=== PATIENT | female | born 1940 | race African-American/Black ===

== ENCOUNTER → 2021-12-11 | Day surgery (SDC) | payer MEDICARE, MEDICAID, SELFPAY ==
[2021-12-10 07:26] VITALS: BMI 29.5
[2021-12-11 09:23] LABS: Hemoglobin 12.4 g/dL (12.0-15.0); Mean Corp Hgb Conc 33.5 g/dL (32-36); Mean Corpuscular Hgb 27.4 pg (27.0-32.0); Mean Corpuscular Volume 81.7 fL (81-99); Mean Platelet Vol. 11.1 fl (6.2-12.0); Platelet Count 168 K/mm3 (150-450); RBC Distribution Width CV 15.3 % (11.6-14.6); RBC Distribution Width SD 44.9 fl (35.1-43.9); Red Blood Count 4.53 M/mm3 (4.2-5.4); White Blood Count 6.8 K/mm3 (4.4-11.0)
[2021-12-11 09:42] LABS: Anion Gap 11 (5-15); BUN 54 mg/dL (7-18); BUN/Creat Ratio 6.2 RATIO (10-20); Calcium,Total 8.9 mg/dL (8.5-10.1); Chloride 103 mmol/L (98-107); Creatinine, Serum 8.71 mg/dL (0.55-1.02); EST Glomerular Filtration Rate 5 mL/min (>60); Est Glom Filt Rate - Afr Amer 6 mL/min (>60); Estimated Creatinine Clearance 4.84 ml/min; Glucose 109 mg/dL (74-106); Sodium Level 139 mmol/L (136-145)
--- NOTE | 2021-12-11 10:20 | HP.PCM_ITS ---
History and Physical Allergies latex Allergy (Intermediate, Verified 12/05/21 15:45) Rashstatin meds Adverse Reaction (Severe, Uncoded 12/05/21 15:45) disoriented Medications B-complex with vitamin C 1 tab PO DAILY 12/04/21 [History Confirmed 12/10/21] apixaban 2.5 mg tablet 2.5 mg PO BID 12/04/21 [History Confirmed 12/10/21] aspirin 81 mg tablet,delayed release (Adult Low Dose Aspirin) 81 mg PO DAILY 12/04/21 [History Confirmed 12/10/21] calcium acetate(phosphat bind) 667 mg capsule 667 mg PO TIDWMEAL 12/04/21 [Hist ory Confirmed 12/10/21] cholecalciferol (vitamin D3) 25 mcg (1,000 unit) capsule 5,000 unit PO DAILY 12/04/21 [History Confirmed 12/10/21] cinacalcet 30 mg tablet 30 mg PO .COMPLEX 12/04/21 [History Confirmed 12/10/21] clonazepam 0.5 mg tablet (Klonopin) 1 mg PO DAILY 12/04/21 [History Confirmed 12/10/21] glimepiride 1 mg tablet 1 mg PO DAILY 12/04/21 [History Confirmed 12/10/21] hydralazine 50 mg tablet 50 mg PO BID 12/04/21 [History Confirmed 12/10/21] pantoprazole 40 mg tablet,delayed release 40 mg PO DAILY 12/04/21 [History Confirmed 12/10/21] polyethylene glycol 3350 17 gram oral powder packet 17 g PO DAILY 12/04/21 [History Confirmed 12/10/21] carvedilol 6.25 mg tablet 6.25 mg PO TID 12/05/21 [History Confirmed 12/10/21] linagliptin 5 mg tablet (Tradjenta) 5 mg PO DAILY 12/05/21 [History Confirmed 12/10/21] PFSH Medical History?(Updated 12/10/21 @ 09:[address] Kj Martínez MD) Diabetes ESRD (end stage renal disease) on dialysis Hypertension Surgical History?(Updated 12/10/21 @ 09:[address] Kj Martínez MD) S/P arteriovenous (AV) fistula creation HPI HPI HPI: STEPHANIE KING, is a 81 F who presents to the office today for difficulty with left arm AV fistula. Had been working for a few months, now with difficulty cannulating. Also has had prolonged bleeding after access and some episodes of clot in lines.? Has not had any imaging. ROS General General: Yes weight change; No appetite, fatigue, colon cancer, breast cancer or weakness HEENT HEENT: No difficulty swallowing, eye injury, eye surgery, swollen glands or hoarseness Endo Endocrine: Yes diabetes mellitus; No thyroid disease, thyroid cancer, Hair loss, heat intolerance or cold intolerance Skin Skin: No rash or changing moles Musc Musculoskeletal: Yes back problems; No arthritis, rheumatoid arthritis, gout or joint pain Cardio Cardiovascular: Yes high blood pressure and shortness of breat with exertion; No murmur, pacemaker, heart disease, atrial fibrillation, heart attack, heart stent, palpitations or chest pain Psych Psychiatric: Yes depression and anxiety; No hearing voices Resp Respiratory: Yes shortness of breath, Yes sleep apnea, No cough, No COPD, No asthma, No emphysema and No wheezing Gastro Gastrointestinal: No abdominal pain, No nausea or vomiting, No diarrhea, No constipation, No blood in stool, Yes acid reflux, No hemorrhoids, No ulcers, No gallbladder problem and No black,tarry stools Saman Hematologic: Yes blood thinners, No blood disorders, No bleeding, Yes anemia and No blood clots Neuro Neurologic: No system reviewed and no additional complaints, except as documented, No as per HPI, No abnormal gait, No abnormal hearing, No abnormal movements, No abnormal speech, No behavioral changes, No burning sensations, No confusion, No convulsions, No disequilibrium, No dizziness, No localized weakness, No frequent falls, No headache(s), No lack of coordination, No loss of vision, No memory loss, Yes numbness, No other visual disturbances, No radicular pain, No restless legs, No sensory deficit, No syncope, No tingling, No tremor(s), No weakness and No other Exam Const General: cooperative, healthy appearing, comfortable, no acute distress and well developed Nutritional Appearance: well nourished Orientation: alert, awake and oriented x3 HENMT Head: normocephalic and atraumatic Ears: hearing grossly normal bilaterally Nose: external nose normal Eyes General: appearance normal, both eyes and all related structures EOM: EOM intact bilaterally Neck Neck: trachea midline Resp Effort & Inspection: normal respiratory effort, able to speak in complete sentences, symmetric chest movement, no audible wheezes, not labored, no stridor and no use of accessory muscles Cardio Rate: regular rate Rhythm: regular rhythm Pulses: radial pulses present Other: +weak thrill in LUE fistula Neuro Cranial Nerves: CN's II-XI intact bilaterally and EOM intact bilaterally Speech: speech normal Motor: strength 5/5 throughout Sensory Exam: no sensory deficits noted Psych Appearance: grossly normal and well kempt Mental Status: mental status grossly normal Mood: congruent mood Speech and Movement: speech and movement normal Thought Content: normal Judgment: judgment good Coding Level of Care Code Off vis,est,level 3 Diagnoses 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
--- NOTE | 2021-12-11 11:08 | PCM.OPRPT ---
Report of Operation Date of Procedure: 12/11/21 Pre-Operative Diagnosis: malfunction of AV fistula Post-Operative Diagnosis: Same; stent within access segment Surgery/Procedure Performed:: fistulagram Description of Surgical Findings:: Patent fistula, brisk contrast transit, arterial inflow and venous outflow without stenosis. Stent in mid segment of access segment, <30% stenosis distal to stent Surgeon: Kj Martínez Type of Anesthesia: Local and Sedation,Conscious Estimated Blood Loss (mL): 10 Description of Procedure: HPI: Patient is an 81-year-old female with previously created left basilic fistula that has had prior angioplasty and stenting in the past. Has been working well for several months and then recently she has experienced multiple issues including difficulty accessing, bleeding after decannulation, and clot formation within the circuit. She taken now for fistulogram. Description of procedure: Upon obtaining informed consent and verification correct patient procedure site patient was taken to [facility] where she was positioned prepped and draped in usual sterile fashion. Timeout was then performed and conscious sedation was administered with intermittent doses of Versed and fentanyl. Ultrasound used to assess the fistula, and on grayscale imaging appeared to be satisfactory caliber throughout with visible stent in the midportion of the access segment. Skin was anesthetized 1% lidocaine adjacent to the anterior anastomosis, and fistula was accessed with micropuncture needle and wire. This was then exchanged for the 6 [place] access sheath, though there was some resistance advancing the sheath. This was then advanced under fluoroscopic guidance and noted to be catching on the end struts of the stent, was felt to be within the lumen of the fistula. The inner cannula was withdrawn and the access wire kept in position and small volume contrast injected under low pressure by hand which confirmed at the end of the sheath was not within the lumen. The inner dilator was then readvanced and the sheath advanced again under fluoroscopic guidance at this time easily into the lumen of the fistula and stent. From this position hand-injection fistulogram was performed segmentally of the entirety of the length of the venous outflow including superior vena cava, followed by compression of the mid fistula and reflux angiography into the arteriotomy was performed. The distal basilic vein as well as his outflow into the brachial, axillary, subclavian, innominate, and superior vena cava were all widely patent with no stenosis and brisk contrast transit. Contrast rapidly emptied into the right atrium. The proximal portion of the fistula and artery anastomosis were widely patent with no stenosis visualized. The stent within the access segment was patent with minimal luminal irregularity likely representing in-stent intimal hyperplasia that did not cause any significant stenosis. Likewise just distal to the stent there was mild luminal irregularity with no significant stenosis. Seeing no lesions that were appropriate for intervention a 4-0 nylon U stitch was placed in the skin, the sheath was withdrawn, and manual pressure held for 5 minutes. The inclusion the patient was taken recovery anticipated discharge home. Complications None
== END | disposition home or self-care (01) ==
PROVIDERS: PCP Family Medicine; Referring Provider Surgery Trauma Surgery; Visit Provider Surgery Trauma Surgery
DX: T82.41XA Breakdown (mechanical) of vascular dialysis catheter, initial encounter (principal); E11.22 Type 2 diabetes mellitus with diabetic chronic kidney disease; N18.6 End stage renal disease; I12.0 Hypertensive chronic kidney disease with stage 5 chronic kidney disease or end stage renal disease
CPT/HCPCS: 36415; 36901; 76937; 80048; 85027; 99152; 99153; Q9967

== ENCOUNTER 2021-12-30 06:38 | Day surgery (SDC) | payer MEDICARE, MEDICAID, SELFPAY ==
[2021-12-30] VITALS (7 sets, daily range): BP systolic 105–129; BP diastolic 40–71; PULSE 53–73; RESP 16–20; TEMP 36.4–37.3; O2SAT 94–99; BMI 30.8
--- NOTE | 2021-12-30 07:52 | HP.PCM_ITS ---
History and Physical [facility] Medical History? Anemia in CKD (chronic kidney disease) Anxiety Arthritis Asthma Back pain Cardiology follow-up encounter Cyst of kidney, acquired Dementia Diabetes Diabetes mellitus with chronic kidney disease Dietary restriction Easy bruising ESRD (end stage renal disease) on dialysis Gastric reflux History of edema History of renal dialysis History of stress test History of umbilical hernia Hx of diabetic gastroparesis Hypertension Low iron Non-smoker Renal osteodystrophy Shortness of breath on exertion TIA (transient ischemic attack) Walker as ambulation aid Wears glasses Surgical History? History of removal of Port-a-Cath Hx of tonsillectomy S/P arteriovenous (AV) fistula creation Social History? Smoking Status:? Never smoker HPI HPI HPI: STEPHANIE KING, is a 81 F who presents to the office today for follow up after fistulagram. For the most part her fistula was satisfactory in appearance; patent large caliber outflow, adequate inflow anastomosis. She did have a previous stent placed in the mid fistula at the point of access. ROS General General: Yes weight change; No appetite, fatigue, colon cancer, breast cancer or weakness HEENT HEENT: No difficulty swallowing, eye injury, eye surgery, swollen glands or hoarseness Endo Endocrine: Yes diabetes mellitus; No thyroid disease, thyroid cancer, Hair loss, heat intolerance or cold intolerance Skin Skin: No rash or changing moles Musc Musculoskeletal: Yes back problems; No arthritis, rheumatoid arthritis, gout or joint pain Cardio Cardiovascular: Yes high blood pressure and shortness of breat with exertion; No murmur, pacemaker, heart disease, atrial fibrillation, heart attack, heart stent, palpitations or chest pain Psych Psychiatric: Yes depression and anxiety; No hearing voices Resp Respiratory: Yes shortness of breath, Yes sleep apnea, No cough, No COPD, No asthma, No emphysema and No wheezing Gastro Gastrointestinal: No abdominal pain, No nausea or vomiting, No diarrhea, No constipation, No blood in stool, Yes acid reflux, No hemorrhoids, No ulcers, No gallbladder problem and No black,tarry stools Saman Hematologic: Yes blood thinners, No blood disorders, No bleeding, Yes anemia and No blood clots Neuro Neurologic: No system reviewed and no additional complaints, except as documented, No as per HPI, No abnormal gait, No abnormal hearing, No abnormal movements, No abnormal speech, No behavioral changes, No burning sensations, No confusion, No convulsions, No disequilibrium, No dizziness, No localized weakness, No frequent falls, No headache(s), No lack of coordination, No loss of vision, No memory loss, Yes numbness, No other visual disturbances, No radicular pain, No restless legs, No sensory deficit, No syncope, No tingling, No t remor(s), No weakness and No other Exam Const General: cooperative, healthy appearing, comfortable, no acute distress and well developed Nutritional Appearance: well nourished Orientation: alert, awake and oriented x3 [facility] Head: normocephalic and atraumatic Ears: hearing grossly normal bilaterally Nose: external nose normal Eyes General: appearance normal, both eyes and all related structures EOM: EOM intact bilaterally Neck Neck: normal visual inspection and trachea midline Resp Effort & Inspection: normal respiratory effort, able to speak in complete sentences, symmetric chest movement, no audible wheezes, not labored, no stridor and no use of accessory muscles Cardio Rate: regular rate Rhythm: regular rhythm Pulses: brachial pulses present and radial pulses present Other: +thrill, left brach-basilic fistula Skin General: no rashes or lesions noted and no erythema Wounds: no wounds Neuro Cranial Nerves: CN's II-XI intact bilaterally and EOM intact bilaterally Speech: speech normal Gait: normal gait Motor: strength 5/5 throughout Sensory Exam: no sensory deficits noted Psych Appearance: grossly normal and well kempt Mental Status: mental status grossly normal Mood: congruent mood Speech and Movement: speech and movement normal Thought Content: normal Judgment: judgment good Coding Level of Care Code Off vis,est,level 2 Diagnoses 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
[2021-12-30] MEDS: Lidocaine 1% (30 ml sdv) 30 ML Vial (08:18)
[2021-12-30 08:20] LABS: Bedside Glucose 115 mg/dL (74-106)
[2021-12-30] MEDS: Heparin Injection (Vial) 5,000 UNIT/ML VIAL 5000 UNIT (08:21)
[2021-12-30] MEDS: Bupivacaine 0.25% 30 ML Vial (09:53)
--- NOTE | 2021-12-30 09:57 | DCINST_ITS ---
Discharge Instructions Procedure Narrative: revision left arm AV fistula with immediate access jump graft Diet Discharge Diet: No restrictions Activity May shower in (days): 2 Weight Bearing Status: Weight bearing as tolerated Lifting Restrictions: do not lift > 20 lbs with left arm for 3 weeks Additional Activity Instructions:: Do not submerge incision for 3 weeks May resume Eliquis AM dose 11\9\2021 Dressing / Incision Call your doctor if your incision/area has: Sudden Increased Bleeding, Increased Pain/ Swelling and Foul Smelling Discharge Call your doctor if you observe: Fever of 101 or Higher Remove Dressing in: 1 day Follow Up Care Test Results: Test results from this visit will be discussed in further detail at your follow- up appointment, if applicable. Discharge Plan Admission Attending Provider: Kj Martínez Primary Care Provider: Piotr Deutsch Discharge Orders/Prescriptions Prescriptions: New oxycodone 5 mg capsule 5 mg PO Q8H PRN (Reason: pain) 4 Days Qty: 12 0RF Continued apixaban 2.5 mg tablet 2.5 mg PO BID aspirin [Adult Low Dose Aspirin] 81 mg tablet,delayed release (DR/EC) 81 mg PO DAILY B-complex with vitamin C Tablet 1 tab PO DAILY cholecalciferol (vitamin D3) 25 mcg (1,000 unit) capsule 5,000 unit PO DAILY cinacalcet 30 mg tablet 30 mg PO TUTHSA Rx Instructions: 30 mg orally 3 x weekly; clonazepam [Klonopin] 0.5 mg tablet 1 mg PO DAILY pantoprazole 40 mg tablet,delayed release (DR/EC) 40 mg PO DAILY calcium acetate(phosphat bind) 667 mg capsule 667 mg PO TIDWMEAL polyethylene glycol 3350 17 gram powder in packet 17 g PO DAILY Tradjenta 5 mg tablet 5 mg PO DAILY carvedilol 6.25 mg tablet 6.25 mg PO TID Rx Instructions: must administer with a meal/food ferrous sulfate [FeroSul] 325 mg (65 mg iron) Tablet 325 mg PO DAILY albuterol sulfate 90 mcg/actuation Hfa Aerosol Inhaler 1 inh INHALATION Q6H PRN (Reason: SOB) Referrals / Follow Up: Piotr Deutsch MD [Primary Care Provider] - Disposition Disposition (needs filled in before D/C Order can be placed): Home, Self Care
[2021-12-30] MEDS: oxyCODONE 5 MG Tablet PO (11:00)
--- NOTE | 2021-12-30 12:53 | PCM.OPRPT ---
Report of Operation Date of Procedure: 12/30/21 Pre-Operative Diagnosis: stenosis of left brachio-basilic fistula Post-Operative Diagnosis: same Surgery/Procedure Performed:: revision without thrombectomy of left brachio-basilic fistula with 6 mm Accuseal jump graft Description of Surgical Findings:: +thrill Surgeon: Kj Martínez Type of Anesthesia: Local MAC Estimated Blood Loss (mL): 35 Description of Procedure: HPI: Patient is an 81-year-old female with a previous left basilic fistula that has required multiple percutaneous interventions. Over the last several weeks she has developed prolonged bleeding as well as thrombus returned within the dialysis circuit. She was taken for fistulogram which had revealed for the most part satisfactory appearing fistula however somewhat he had previously placed a stent in the midportion of the access sites. The stent had in-stent restenosis and was felt that surgical revision was appropriate. She taken now for revision without thrombectomy. Description of procedure: Upon obtaining form consent and verification correct patient procedure site the patient was taken to the operating room where she was positioned prepped and draped in usual sterile fashion. Time was performed and conscious sedation administered by anesthesia. Ultrasound was used to vasu the fistula proximal to and distal to the edge of the stent. Skin was anesthetized 1% lidocaine and transverse incision made over the proximal portion of the fistula. Bovie cautery was dissect out the subcutaneous tissue down the point where the fistula was visualized. This point self-retaining retractors put in position and start dissection was used dissect free circumferentially proximal to the palpable edge of the stent. A right angle used to place a vessel loop and we then turned attention to the distal exposure. Transverse incision was made over the fistula Bovie electrocautery to dissect down to the base tissue. Once the fistula was visualized self-retaining retractors were put in position and sharp dissection used to dissect free the vein circumferentially. A right angle was used to place a vessel loop and the tunnel initiated in both the proximal distal incision using a hemostat. This point a curved tunneler was used to tunnel a 6 mm nontapered AcuSeal PTFE graft in the subcutaneous plane lateral to the needed fistula. The patient was then heparinized allowed to circulate 3 minutes after which the arterial end of the fistula was clamped with atraumatic clamp at the proximal distal extents of the dissection. The fascia was then divided and the distal end oversewn with 5-0 Prolene in 2 layers, after which the clamp was removed distally with satisfactory stasis noted. Next the graft was cut the length and beveled to match the vein and anastomosis performed using 5-0 Prolene in a running fashion. After completing the suture line the clamps were removed and the graft flushed antegrade with satisfactory brisk flow, and satisfactory hemostasis of the suture line. Atraumatic clamp was then placed on the newly placed graft and attention turned to the venous anastomosis. At the distal surgical site the fistula was clamped proximal and distal and divided, and next the proximal end oversewn with 6-0 Prolene running fashion. Clamps removed satisfactory stasis was noted. We then cut the graft and beveled to match the cut end of the outflow vein, and anastomose performed using 5-0 Prolene in a running fashion. Prior to completing the suture line vessels were backbled, and after completing the suture line clamps removed and satisfactory stasis noted. There is a palpable thrill throughout to the newly placed graft, and satisfactory hemostasis noted of the suture lines. The patient was reversed with protamine, and there was generalized ooze from the raw surfaces so Sergey topical hemostatic was applied. Once satisfactory hemostasis was observed the incision was closed with 3-0 Vicryl 4-0 Monocryl and Dermabond for the skin. At the conclusion of case patient was awakened from her sedation taken to the recovery room anticipated discharge home. Grafts/Implants Used: [place] Accuseal 6 mm
== END 2021-12-30 11:45 | disposition home or self-care (01) ==
LOC: SDC 06:38 → AC 06:39
PROVIDERS: PCP Family Medicine; Referring Provider Surgery Trauma Surgery; Visit Provider Surgery Trauma Surgery
PROC: (CPT 36832; principal; 2021-12-30 07:15)
DX: T82.858A Stenosis of other vascular prosthetic devices, implants and grafts, initial encounter (principal); Z99.2 Dependence on renal dialysis; F03.90 Unspecified dementia, unspecified severity, without behavioral disturbance, psychotic disturbance, mood disturbance, and anxiety; E11.22 Type 2 diabetes mellitus with diabetic chronic kidney disease; E11.43 Type 2 diabetes mellitus with diabetic autonomic (poly)neuropathy; I12.0 Hypertensive chronic kidney disease with stage 5 chronic kidney disease or end stage renal disease; N18.6 End stage renal disease; N25.0 Renal osteodystrophy; F41.9 Anxiety disorder, unspecified; D63.1 Anemia in chronic kidney disease; F32.9 Major depressive disorder, single episode, unspecified; Z79.899 Other long term (current) drug therapy; Z86.73 Personal history of transient ischemic attack (TIA), and cerebral infarction without residual deficits
CPT/HCPCS: 36832; 01844; 36415; 82962; 86850; 86900; 86901; J7040; J2405